=== PATIENT | female | born 1995 | race African-American/Black ===

== ENCOUNTER 2024-03-06 20:35 | Emergency (ER) | payer MEDICAID ==
[~2024-03-06] VITALS: Ht 162.6 cm; Wt 73.0 kg
[2024-03-06 20:44] VITALS: BP 123/79; PULSE 90; RESP 20; TEMP 98.4; O2SAT 100
[2024-03-06] MEDS: ACETAMINOPHEN 325MG TABLET PO ONE (21:34)
== END 2024-03-06 22:16 | disposition home or self-care (01) ==
LOC: ER 20:35
DX: O26.892 Other specified pregnancy related conditions, second trimester (principal); Z3A.20 20 weeks gestation of pregnancy; Z00.00 Encounter for general adult medical examination without abnormal findings
CPT/HCPCS: 99282

== ENCOUNTER 2024-04-28 18:10 | Emergency (ER) | payer MEDICAID, OTHER ==
[~2024-04-28] VITALS: Ht 162.6 cm; Wt 91.0 kg
[2024-04-28 18:15] VITALS: PULSE 110; O2SAT 99
[2024-04-28 18:18] VITALS: BP 137/74; RESP 18; TEMP 98.2; O2SAT 99
[2024-04-28] MEDS ORDERED: IVER3TAB2 MT (23:13)
== END 2024-04-28 23:34 | disposition home or self-care (01) ==
LOC: ER 18:10
DX: G89.29 Other chronic pain (principal); L30.9 Dermatitis, unspecified
CPT/HCPCS: 99283